=== PATIENT | male | born 1970 | race Caucasian/White ===

== ENCOUNTER 2024-12-19 23:52 | Inpatient (IN) | payer OTHER, SELFPAY ==
[2024-12-19] VITALS (7 sets, daily range): BP systolic 117–160; BP diastolic 72–93; BMI 28.7
[2024-12-19] MEDS: LOW STRENGTH ASPIRIN 324 MG PO (19:36)
--- NOTE | 2024-12-19 19:42 | ED.GENMED ---
History of Present Illness
General
Chief Complaint: Cardiac Symptoms
Source: patient
Exam Limitations: none
Time Seen by Provider: 12/19/24 19:10
Nursing documentation reviewed up to this point in time: agreed with
History of Present Illness
History of Present Illness:
Patient with history of CAD, multiple cardiac stent placement, with most recent in 2021, currently on aspirin and Plavix, presents to ED secondary to recurrent chest pain with shortness of breath over the past 4 days, which has become more
persistent today. Chest pain described as pressure, left-sided, along with sensation of throat discomfort, without any alleviating or exacerbating factors. Chest pain currently described as 1 out of 10 on pain scale. Denies recent travel or
surgery. Denies leg pain or swelling. Patient denies drinking alcohol, but does smoke daily.
Past History
Past History
ED Past Medical History: CAD, HTN and Hypercholesterolemia
ED Past Surgical History: Cardiac (cath 10/17, 12/17)
Social History
Tobacco: Smoker
Alcohol: Occasional
Personal:
Living: with family
Employment: Employed
Family History
Family History: Negative Early CAD or Sudden
Review of Systems
Review of Systems
Allergies reviewed?: Yes
All Other Systems: ROS reviewed and negative except as documented in HPI and ROS
Constitutional: Reports no symptoms
EENT: Reports no symptoms
Respiratory: Reports trouble breathing
Cardiac: Reports chest pain
ABD/GI: Reports nausea
Musculoskeletal: Reports no symptoms
Skin: Reports no symptoms
Neurological: Reports no symptoms
Phy Exam
Physical Exam
Physical Exam:
Physical Exam
General: no apparent distress, not acutely ill. afebrile
Head: nc/at. eomi
Neck: supple. no meningeal signs.
Heart: s1/s2 regular rate and rhythm.
Lungs: no acute respiratory distress. clear bilaterally. chest wall nontender to palpation
Abdomen: normal bowel sounds. not tender.
Neuro: alert and oriented x 3. no focal neurological deficits
Skin: no rash
Psychiatric: well kept. interactive and cooperative
Extremities: no edema. no calf tenderness.
Scores
Heart Score for Chest Pain Patients
STEMI patient?: No
History: Moderately Suspicious
ECG: Normal
Age: >45 - <65 years
Risk Factors: >/= 3 Risk Factors or History of CAD
Troponin: </= Normal Limit
Heart Score for Chest Pain Patients: 4
Heart Score Risk: 20.3% MACE over next 6 weeks
Course
Orders/Labs/Results
Orders:
Orders
12/19/24 19:01
ECG [Electrocardiogram (*1)] Urgent
Reason for Study: Chest Pain
EKG- Treatment ONCE
12/19/24 19:18
Aspirin Chewable [Low Strength Aspirin] 324 mg PO NOW STA
12/19/24 19:31
Complete Blood Count/With Diff Urgent
Comprehensive Metabolic Panel Urgent
Magnesium Urgent
Troponin I Urgent
12/19/24 19:35
PTT Urgent
12/19/24 19:50
Heparin 4,000 units IV NOW STA
Nursing to Place Non Medication Order As Directed
Physician Order: PTT 6 hours after initial start of Heparin infusion
Above order entered?: Yes
12/19/24 20:00
Heparin 47700 Units/250 ml 25,000 units in 250 ml IV PER PROTOCOL
Weight to be used for heparin protocol in kilograms (kg):: 88
Protocol:: Cardiac Tx/Acute Coronary
PTT Goal Range to be used:: PTT 73 to 111 seconds
Order type:: Initial
INITIAL Infusion Dose (UNITS/KG/hr) & then follow protocol:: 12 units/kg/hr
Infusion Dose in UNITS/hr & then follow protocol (UNITS/hr):: 1,000
INFUSION RATE in mL/hr & then follow protocol (mL/hr):: 10
PTT less than or equal to 64 seconds:: Increase rate by 200 units/hr (+ 2 mL/hr)
PTT 64.1 to 72.9 seconds:: Increase rate by 100 units/hr (+ 1 mL/hr)
PTT 73 to 111 seconds:: Target Range. No change in rate.
PTT 111.1 to 130.9 seconds:: Decrease rate by 100 units/hr (- 1 mL/hr)
PTT 131 to 199.9 seconds:: HOLD for 1 hr. Then decrease rate by 200 units/hr (- 2 mL/hr)
PTT greater than or equal to 200 seconds:: HOLD for 2 hrs & Notify Provider. Then decrease by 200 units/hr (-
2 mL/hr)
Lab follow-up:: Each change, PTT q6h until 2 consecutive are therapeutic. Then PTT
daily.
12/19/24 20:21
Electrocardiogram (*1) Urgent
Reason for Study: Chest Pain
EKG- Treatment ONCE
12/19/24 22:55
Admit/Transfer Patient As Directed
Co-Sign Provider:
Level of Care: Inpatient admission
Assign to:: Telemetry
Physician / Group: Reji
Transfer to: Telemetry
Diagnosis: CP, Possible Unstable Angina
Reason for Telemetry: Chest Pain syndromes
Date to Stop Telemetry: 12/21/24
Time to Stop Telemetry: 11:00
Reason for Hospitalization: CP, Possible Unstable Angina
Expected length of stay greater than two midnights?: Yes
ELOS- Estimated Length of Stay in days: 2
I certify the patient meets the requirements for IP care: Yes
PRN Pain Medication Management As Directed
May give lesser potent ordered pain med per pt: Yes
preference::
Protocol:: Medication orders for pain may be administered in a
manner that supports deferring to patient preference
when the pt is:
- Requesting an ordered lesser potent pain medication.
Least to most potent pain medications are defined
as: acetaminophen < NSAID < tramadol < opioids
(morphine, oxycodone, hydromorphone).
- Requesting a lesser dose of the same medication IF
ORDERED.
- Requesting a less intrusive route of administration
if both routes are prescribed by the provider (PO <
IV).
12/19/24 22:56
Code Status As Directed
Resuscitation Status: Full Code
12/19/24 23:00
Flush (0.9% Sodium Chloride) [Flush (Nss)] See Dose Instructions IV PER PROTOCOL
12/19/24 23:01
CR Chest - 2 Views Stat
Comment:
Reason For Exam: CP/Dyspnea
12/20/24 00:38
Electrocardiogram (*1) Q6H
Reason for Study: Chest Pain
Comment: at admission and Q3H for total of 3, to be done with each troponin
Atorvastatin [Lipitor] 80 mg PO HS
Carvedilol [Coreg] 12.5 mg PO BID
Ezetimibe [Zetia] 10 mg PO HS
Ipratropium/Albuterol Sulfate [Duoneb] 3 ml INH R Q4HPRN PRN
Morphine Sulfate 2 mg IV Q6HPRN PRN
Nicotine [Nicoderm Transdermal] 14 mg TRANSDERM DAILY
12/20/24 00:38
CARDIOLOGY CONSULT Routine
Consulting Provider: Ayaka Norris
Was physician already notified: Yes
Reason for consult: CP, Possible Unstable Angina
Activity As Directed
Activity Level: As Tolerated
INT (Intravenous Needle Therapy) As Directed
Comment: maintain peripheral IV access
Intake/ Output As Directed
Frequency: Per unit guidelines
Vital Signs As Directed
Frequency: q4h
Weight As Directed
Frequency: Daily
12/20/24 01:30
Troponin I Q6H
12/20/24 02:00
PTT Routine
12/20/24 Breakfast
NPO
Allow oral meds: Yes
Allow clear liquids: No
NPO with Ice Chips: Yes
Cardiovascular Evaluation IN AM
Complete Blood Count/With Diff IN AM
Comprehensive Metabolic Panel IN AM
Protime/PTT IN AM
12/20/24 06:38
Electrocardiogram (*1) Q6H
Reason for Study: Chest Pain
Comment: at admission and Q3H for total of 3, to be done with each troponin
12/20/24 07:30
EKG [Electrocardiogram (*1)] IN AM
Reason for Study: Chest Pain
Troponin I Q6H
12/20/24 08:00
Aspirin Low Dose EC [Aspir Low (Enteric Coated)] 81 mg PO DAILY
Clopidogrel Bisulfate [Plavix] 75 mg PO DAILY
Losartan [Cozaar] 25 mg PO DAILY
12/20/24 12:38
Electrocardiogram (*1) Q6H
Reason for Study: Chest Pain
Comment: at admission and Q3H for total of 3, to be done with each troponin
12/21/24 11:00
DC Protocol for Telemetry ONCE
Abnormal Lab Results
12/19/24
19:31
Absolute Lymphs (auto) 3.7 H 10^3/uL
(1.2-3.4)
Absolute Monos (auto) 0.8 H 10^3/uL
(0.1-0.6)
Chloride 110 H mmol/L
(98-107)
12/19/24 19:31
12/19/24 19:31
Vital Signs
Initial and Last Documented VS:
Initial Vital Signs
Temp Pulse Resp BP Pulse Ox
98 F 56 20 160/93 99
12/19/24 19:04 12/19/24 19:04 12/19/24 19:04 12/19/24 19:04 12/19/24 19:04
Last Documented Vital Signs
Temp Pulse Resp BP Pulse Ox
97.5 F 60 18 129/78 99
12/20/24 00:51 12/20/24 00:51 12/20/24 00:51 12/20/24 00:51 12/20/24 00:51
MDM/Problems Addressed
MDM/Problems Addressed:
Patient given aspirin 325 mg and started on heparin protocol.
Initial troponin negative. Repeat EKG without any significant ST changes.
Discussed with on-call cardiology, Dr. Ayaka Norris. Request hospitalist admission tonight on heparin protocol, with consideration for potential cardiac catheterization tomorrow.
*EKG
Interpreted by ED Provider?: Yes
EKG Intrepretation Date: 12/19/24
Heart Rate: 61
Rate: normal
Rhythm: sinus
Mellen: normal axis
Interval: normal interval
*Critical Care Note
Total Time (30-74mins, 75-104mins- exclusive of procedures): Not Applicable
ED Attending Note
-
Portions of this chart may have been created with voice recognition software.� Occasional wrong word or��sound alike� substitutions may have occurred due to the inherent limitations of voice recognition software.
Discharge Plan
Departure
Patient Disposition: Admit
Date of Disposition: 12/19/24
Time of Disposition: 22:07
Admit to: Telemetry
Presentation/result/management discussed w/ accepting MD/DO: Hospitalist
Discharge Problem:
Chest pain
Interventions
Interventions:
*Risk Screen - Suicide Last Done: 12/19/24 19:04
*General Assessment Last Done: 12/19/24 19:04
*Neglect/Abuse Screening Last Done: 12/19/24 19:04
*ED- Fall Risk Assessment Last Done: 12/19/24 20:13
*ED COVID-19 Vaccine History Last Done: 12/19/24 20:13
*Nursing Disposition Last Done: 12/20/24 00:25
ED- Pulmonary Assessment Last Done: 12/19/24 23:00
ED- Cardiac Assessment Last Done: 12/19/24 23:00
Discharge Date and Time
Discharge Date/Time: 12/20/24 00:25
[2024-12-19 19:43] LABS: % Eosinophils 5.4 % (0-6); % Immature Granulocytes 0.2 % (0-0.5); % Lymphocytes 38.1 % (20.5-51.1); % Monocytes 7.9 % (1.7-9.3); % Neutrophils 47.4 % (42.2-75.2); Absolute Basophils 0.1 10^3/uL (0-0.2); Absolute Eosinophils 0.5 10^3/uL (0-0.7); Absolute Lymphocytes 3.7 10^3/uL (1.2-3.4); Absolute Monocytes 0.8 10^3/uL (0.1-0.6); Absolute Neutrophils 4.6 10^3/uL (1.4-6.5); Hematocrit 43.4 % (39.0-52.0); Hemoglobin 15.3 g/dL (13.0-18.0); Mean Corp Hgb Conc. 35.3 g/dL (33.0-37.0); Mean Corpuscular Hgb 28.4 pg (27.0-31.0); Mean Corpuscular Volume 80.7 fL (80.0-94.0); Mean Platelet Volume 9.7 fL (7.4-10.4); Nucleated Red Blood Cells % 0 % (-); Platelet Count 214 10^3/uL (130-400); Red Blood Cell Count 5.38 10^6/uL (4.70-6.10); Red Cell Dist. Width 13.5 % (11.5-14.5); White Blood Cell Count 9.7 10^3/uL (4.8-10.8)
[2024-12-19 19:58] LABS: ALT (SGPT) 25 U/L (0-50); AST (SGOT) 28 U/L (17-59); Albumin 4.2 g/dl (3.5-5.0); Alkaline Phosphatase 92 U/L (38-126); Blood Urea Nitrogen 16 mg/dl (9-20); Calcium 9.3 mg/dl (8.4-10.2); Carbon Dioxide 24 mmol/L (22-30); Chloride 110 mmol/L (98-107); Estimated Creatinine Clearance 107 ml/min; Glucose 94 mg/dl (70-99); Potassium 4.2 mmol/L (3.5-5.1); Sodium 138 mmol/L (135-145); Total Bilirubin 0.6 mg/dl (0.2-1.3); Total Protein 6.9 g/dl (6.3-8.2); eGFR > 60.00
[2024-12-19 20:00] LABS: APTT 30.1 Sec (23.4-35.0)
[2024-12-19] MEDS: HEPARIN 25000 UNITS/250 ML IV (20:02)
[2024-12-19] MEDS: HEPARIN 4000 UNITS IV (20:02)
[2024-12-19 20:09] LABS: Troponin I < 0.012 ng/ml
--- NOTE | 2024-12-19 23:02 | HPS.HSE ---
Family Physician
-
Family Physician: Jordyn Duong
Chief Complaint
-
Dyspnea, Chest 'Discomfort' Worsenign over last 1 week
History of Present Illness
54yo M with PMH CAD s/p MS s/p MICHAEL to LAD 11/05/2021, Hx Coronary Stents x3 on aspirin/plavix, HTN/HLD, Tobacco Abuse presents to ER wtih CP/Dyspnea x 1 week. Pt states he has been feeling dyspnea worse in mornings for the past 1 week. He describes
sensation as similar to when he had an MS 7 years ago, but milder severity. Today dyspnea occured again in AM but progressed throughout the day. He also noted substernal chest 'discomfort' radiating to left chest, with no arm/shoulder involvement.
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 Angela F/C, Palps, Wheezing, Abd Pain, N/V/D/C, Dysuria, Calf or Leg Pain. Continues to smoke 1/2 PPD. Endorses med compliance.
ER course: Pt presents BP 160/93 -> 117/81, other V.S.S. WBC 9.7K, Hgb 15.3 g/dL, BUN/Cr 16/0.8, LFTs wnl, Trop 0.012. SB @ 59bpm, TWI III-AVF, Inferior Q-waves, Anterior Q-waves, QTC 423ms. Relatively unchanged from 11/06/2021. S/P ASA 324mg. S/P
heparin bolus/gtt. Case D/W cardiology with possible plan for cath in AM.
TTE 11/06/21 wt EF 50-53%, Trace-Mild MR, PaSP 25 mMHg. Mildly dilated proximal ascending aorta 3.9 cm.
Medical History
Past Medical History
Past Medical History: Reports Other (CAD s/p MS, HTN/HLD, Tobacco Abuse)
Past Surgical History: Reports Other (Coronary Stents x 3 (last 2021), Left Ankle Sx, Hydrocele repair, Left Inguinal Hernia repair)
Social History
Tobacco: Smoker (1/2 PPD x 25+ yrs)
Alcohol: Occasional (infrequent)
Drug: None
Personal:
Living: With Family
Family History
Family History: Other (Mother with CAD s/p MS, Father with Muscular Dystrophy and 'some type of heart disease')
Allergies / Home Medications
Allergies reflects when Allergies were last updated in [facility].
Home Medications with original date entered in [facility]
Allergy/Medication List:
Allergies
Allergy/AdvReac Type Severity Reaction Status Date / Time
acetaminophen [From Percocet] AdvReac 'goes a Verified 12/19/24 19:08
little
loopy'
oxycodone [From Percocet] AdvReac 'goes a Verified 12/19/24 19:08
little
loopy'
Home Medications
aspirin 81 mg tablet,delayed release (Adult Low Dose Aspirin) 81 mg PO DAILY Blood clot prevention/tx 12/06/18
atorvastatin 80 mg tablet 80 mg PO HS High cholesterol 12/06/18
losartan 25 mg tablet 25 mg PO DAILY Heart disease/condition 11/05/21
carvedilol 12.5 mg tablet 12.5 mg PO BID #180 tabs 11/07/21
ezetimibe 10 mg tablet 10 mg PO HS #90 tabs 11/07/21
clopidogrel 75 mg tablet (Plavix) 75 mg PO DAILY 12/19/24
Review of Systems
-
A 12 point ROS was completed and negative except as noted: Yes
Physical Exam
Vital Signs
Vital Signs
Temp Pulse Resp BP Pulse Ox
98 F 59 23 117/81 97
12/19/24 19:04 12/19/24 22:15 12/19/24 22:15 12/19/24 22:00 12/19/24 22:15
Physical Exam
General: Well Developed, Well Nourished and No Apparent Distress
HEENT: NormoCephalic, Moist mucous membranes and Atraumatic
Respiratory: Clear
Cardiac: S1/S2, Regular Rhythm and Other (No reproducible chest tenderness. ); No Murmur, Rub or Peripheral Edema
GI: Soft, Non Tender, Non Distended and Normal Bowel Sounds; No Organomegaly
Rectal: Deferred by Provider
Genito-urinary: No costovertebral tender; No Burger
Musculoskeletal: No Clubbing, No Cyanosis and No Edema
Skin: Warm and Dry; No Rash
Neuro: Awake, Alert, AO x 3, No Motor Deficits and Nonfocal/grossly intact
Hematologic/Lymphatic: No Lymphadenopathy
Psych: Calm
Laboratory Results
-
12/19/24 19:31
12/19/24 19:31
Laboratory Results
APTT 30.1 Sec (23.4-35.0) 12/19/24 19:35
Total Bilirubin 0.6 mg/dl (0.2-1.3) 12/19/24 19:31
AST 28 U/L (17-59) 12/19/24 19:31
ALT 25 U/L (0-50) 12/19/24 19:31
Alkaline Phosphatase 92 U/L (38-126) 12/19/24 19:31
Troponin I < 0.012 ng/ml 12/19/24 19:31
Data Reviewed
-
Diagnostic Radiology: Image Personally Visualized and interpreted
Medical Tests (Nuc Med, Echo, EKG etc): Image Personally Visualized and interpreted
Lab Data: Labs Reviewed by me
Old Records: Reviewed
Impression/Plan
-
Chest Pain/Dyspnea / R/O Unstable Angina
Hx CAD s/p Stents x 3 / HTN / HLD
- Dyspnea and Mild substernal/L sided discomfort x 1 week; reports symptoms similar to past MS 7 years ago
- SB @ 59bpm, TWI III-AVF, Inferior Q-waves, Anterior Q-waves, QTC 423ms. Relatively unchanged from 11/06/2021.
- HS Trop 0.012. Trend per MELISSA protocol. Repeat EKG for AM
- Last TTE 11/06/21 wtih EF 50-53%, Trace-Mild MR, PaSP 25 mMHg. Mildly dilated proximal ascending aorta 3.9 cm; will repeat
- Last LHC 10/2021 with MICHAEL to LAD
- Check Lipids/A1C
- S/P ASA 324mg and Heparin bolus/gtt in ER, continue gtt
- Continue bASA/plavix/statin, zetia, ARB,
- Case D/W Cardio, Possible plans for cardiac cath in AM
Tobacco Abuse
- Smoking 1/2 PPD. Nicotine patch ordered. Discussion at bedside with held regarding importance of cessation.
Diet: NPO
DVT Ppx: Heparin gtt
Code Status: Full Code
[2024-12-20 00:23] VITALS: BP 119/84
[2024-12-20 00:51] VITALS: BP 129/78
[2024-12-20 00:52] VITALS: BMI 28.3
[2024-12-20] MEDS: LIPITOR 80 MG PO (01:06)
[2024-12-20] MEDS: ZETIA 10 MG PO (01:06)
[2024-12-20] MEDS: COREG PO (01:50)
[2024-12-20 02:21] LABS: APTT 69.9 Sec (23.4-35.0)
[2024-12-20 02:32] LABS: Troponin I < 0.012 ng/ml
--- NOTE | 2024-12-20 02:37 | PTCARENOTE ---
Patient received form ED via stretcher and ambulated to room. Heparin gtt infusing at 1000units/min. He was oriented to room and surroundings. He denies further chest pain. Tele Sinus Osvaldo. TT to BRIGHT, covering house, Ok to hold Coreg.
Next dose 8am. Trending labs. See nursing assessment for physical findings.
--- NOTE | 2024-12-20 03:25 | PTCARENOTE ---
Patient refused 3 am VS
[2024-12-20 06:00] VITALS: BMI 28.3
[2024-12-20 07:00] VITALS: BP 124/83
--- NOTE | 2024-12-20 07:58 | CON.CAR ---
Addendum entered and electronically signed by Hector Lanza DO 12/20/24 12:20:
I saw and examined the patient.
The Presetter Operator's note was reviewed and I agree with the note.
Comment:
Plan:
Trop negative. Echo with preserved EF and no significant valve disease and stable wall motion changes from prior.
Discussed outpt ischemic eval with stress testing
EKG with no changes from prior.
Cont current regimen including DAPT and Coreg, losartan, statin, zetia
Reviewed with ATC and stress test will be scheduled.
He remains chest pain free and can go home today from cardiac standpoint
Will update primary service.
Original Note:
Consultation
Consultation Request
Date/Time Consultation Requested: 12/20/24 at 0038
Date/Time Consultation Performed: 12/20/24 at 0722
Requesting Provider: Dr. Sheehan
Performing Provider: Dr. Lanza
Reason for Consultation: Chest pain, CAD
Medical History
-
History of Present Illness:
Patient came to [facility] ER last night with chest pain and SOB that feels similar to previous NJ and PCI and was admitted with consultation to cardiology. Patient had initial NJ in 09/2017 and was treated at [facility] with MICHAEL to Circ lesion, but had residual
LAD disease. Patient then had elective cath and prox LAD PCI at [facility] 11/2018. Patient then came to [facility] ER 03/21/19 with symptoms that felt similar to previous NJ, but following serially undetectable Troponin and stable ECGs the patient was d/c'd from
the ER to follow up with ATC. Plavix was eventually stopped, but he continued on aspirin and then had recurrent anterior STEMI at [facility] ER 11/05/21. Patient had patent previously placed prox LAD and Circ stents during 11/05/21 cath, but there was new
distal/apical LAD lesion that was stented. An OM-1 lesion looked stable at 60-70% as far back as 2018. Patient says that he has been on long-term DAPT with aspirin and Plavix since then and still smokes, but no recurrent symptoms until this past
May when he had a cold and he had lingering SOB, then sick again a couple of months ago and lingering cough. Patient came to the ER last night because he says that his stable morning SOB lasted all day yesterday and he had chest pain at the end
of his work day and overall symptoms felt similar to previous NJ so he came to the ER.
PMH:
CAD
s/p inferolateral STEMI and MICHAEL to the prox Circumflex at [facility] 09/2017
s/p 3.5 mm EluNIR MICHAEL to prox LAD and negative hemodynamic assessment of OM-1 lesion at [facility] 11/2018
s/p anterior STEMI and 2.5 mm Xience to distal/apical LAD, patent prox LAD and prox Circ stents, stable 60-70% OM-1 lesion on cath 11/05/21
Ongoing smoker, he rolls his own cigarettes
HTN
HLD
Past Medical History
Past Medical History: Other (in HPI)
Past Surgical History: Cardiac (PCI)
Social History
Tobacco: Smoker
Alcohol: None
Drug: None
Personal:
Living: With Family
Family History
Family History: Early CAD (father)
Allergies / Home Medications
Allergy/AdvReac Type Severity Reaction Status Date / Time
acetaminophen [From Percocet] AdvReac 'goes a Verified 12/19/24 19:08
little
loopy'
oxycodone [From Percocet] AdvReac 'goes a Verified 12/19/24 19:08
little
loopy'
�Medication �Instructions �Recorded �Confirmed �Type
aspirin 81 mg tablet,delayed 81 mg PO DAILY Blood clot 12/06/18 12/19/24 History
release (Adult Low Dose Aspirin) prevention/tx
atorvastatin 80 mg tablet 80 mg PO HS High cholesterol 12/06/18 12/19/24 History
losartan 25 mg tablet 25 mg PO DAILY Heart 11/05/21 12/19/24 History
disease/condition
carvedilol 12.5 mg tablet 12.5 mg PO BID #180 tabs 11/07/21 12/19/24 Rx
ezetimibe 10 mg tablet 10 mg PO HS #90 tabs 11/07/21 12/19/24 Rx
clopidogrel 75 mg tablet (Plavix) 75 mg PO DAILY 12/19/24 12/19/24 History
Review of Systems
-
History Source: Patient
All other systems: Negative unless noted
Physical Exam
Vital Signs
Temp Pulse Resp BP Pulse Ox
97.5 F 54 18 129/78 99
12/20/24 00:51 12/20/24 01:50 12/20/24 00:51 12/20/24 00:51 12/20/24 00:51
GEN: NAD. AAOx3
HEENT: EOMI, MMM
LUNGS: RA. CTA B/L, no wheeze
CV: SR on tele. Reg, S1/S2, no murmur
ABD: soft, BS+, NT, ND
EXT: No clubbing, cyanosis, lesions or edema B/L
NEURO: Gross non-focal
SKIN: Warm, dry and pink. No rash
Lab Results
Troponin I Cancelled 12/20/24 06:38
Labs 12/19/2024: Sodium 138, potassium 4.2, BUN 16, creatinine 0.8, AST 20, ALT 25, troponin serially undetectable
Impression / Plan
-
PCP: [facility] primary care, Dr. Woodson
Primary Brake Lining Driller: Dr. Oneil of [facility]
Impression:
Admitted with chest pain 12/19/24
CAD
s/p inferolateral STEMI and MICHAEL to the prox Circumflex at [facility] 09/2017
s/p 3.5 mm EluNIR MICHAEL to prox LAD and negative hemodynamic assessment of OM-1 lesion at [facility] 11/2018
s/p anterior STEMI and 2.5 mm Xience to distal/apical LAD, patent prox LAD and prox Circ stents, stable 60-70% OM-1 lesion on cath 11/05/21
Ongoing smoker, he rolls his own cigarettes
HTN
HLD
Echo 11/06/2021: EF 50 to 53%, trace to mild MR, trivial TR, PAP 25 mmHg, mildly dilated proximal ascending aorta, 3.9 cm
Plan:
-Patient came to [facility] ER last night with chest pain and SOB that feels similar to previous NJ and PCI and was admitted with consultation to cardiology. Patient had initial NJ in 09/2017 and was treated at [facility] with MICHAEL to Circ lesion, but had residual
LAD disease. Patient then had elective cath and prox LAD PCI at [facility] 11/2018. Patient then came to [facility] ER 03/21/19 with symptoms that felt similar to previous NJ, but following serially undetectable Troponin and stable ECGs the patient was d/c'd from
the ER to follow up with ATC. Plavix was eventually stopped, but he continued on aspirin and then had recurrent anterior STEMI at [facility] ER 11/05/21. Patient had patent previously placed prox LAD and Circ stents during 11/05/21 cath, but there was new
distal/apical LAD lesion that was stented. An OM-1 lesion looked stable at 60-70% as far back as 2018. Patient says that he has been on long-term DAPT with aspirin and Plavix since then and still smokes, but no recurrent symptoms until this past
May when he had a cold and he had lingering SOB, then sick again a couple of months ago and lingering cough. Patient came to the ER last night because he says that his stable morning SOB lasted all day yesterday and he had chest pain at the end
of his work day and overall symptoms felt similar to previous NJ so he came to the ER.
-ECG reviewed by me is identical to previous from 2021. No acute ischemic changes.
-Check echo now, ordered by me.
-Troponin serially undetectable.
-Called his primary customer marketing intern to obtain records.
-Patient has had similar symptoms in the past, but symptoms have not always been associated with ACS.
-Outpatient doses of aspirin 81 mg daily and Plavix 75 mg daily have been continued
-Outpatient dose of Coreg 12.5 mg twice daily has been continued
-Outpatient dose of losartan 25 mg daily has been continued
-[facility] labs pending, outpatient dose of atorvastatin 80 mg daily has been continued. Patient describes that he has been recommended PCSK9 inhibitor and he has refused.
[2024-12-20] MEDS: COZAAR 25 MG PO (08:10)
[2024-12-20] MEDS: ASPIR LOW (ENTERIC COATED) 81 MG PO (08:10)
[2024-12-20] MEDS: COREG 12.5 MG PO (08:10)
[2024-12-20] MEDS: PLAVIX 75 MG PO (08:10)
[2024-12-20 08:25] LABS: % Basophils 1.4 % (0-2); % Eosinophils 6.5 % (0-6); % Immature Granulocytes 0.3 % (0-0.5); % Lymphocytes 38.3 % (20.5-51.1); % Monocytes 9.3 % (1.7-9.3); % Neutrophils 44.2 % (42.2-75.2); Absolute Basophils 0.1 10^3/uL (0-0.2); Absolute Eosinophils 0.5 10^3/uL (0-0.7); Absolute Lymphocytes 2.8 10^3/uL (1.2-3.4); Absolute Monocytes 0.7 10^3/uL (0.1-0.6); Absolute Neutrophils 3.2 10^3/uL (1.4-6.5); Hematocrit 44.2 % (39.0-52.0); Hemoglobin 15.2 g/dL (13.0-18.0); Mean Corp Hgb Conc. 34.4 g/dL (33.0-37.0); Mean Corpuscular Volume 81.4 fL (80.0-94.0); Mean Platelet Volume 9.9 fL (7.4-10.4); Nucleated Red Blood Cells % 0 % (-); Platelet Count 197 10^3/uL (130-400); Red Blood Cell Count 5.43 10^6/uL (4.70-6.10); Red Cell Dist. Width 13.8 % (11.5-14.5); White Blood Cell Count 7.3 10^3/uL (4.8-10.8)
[2024-12-20 08:48] LABS: Troponin I < 0.012 ng/ml
[2024-12-20 09:12] LABS: INR 1.08; PT 14.5 Sec (11.4-14.6)
[2024-12-20 09:14] LABS: APTT 62.3 Sec (23.4-35.0)
[2024-12-20 09:17] LABS: Glycohemoglobin (HgbA1c) 5.7 % (4.0-5.6)
[2024-12-20 10:24] LABS: ALT (SGPT) 25 U/L (0-50); AST (SGOT) 27 U/L (17-59); Alkaline Phosphatase 86 U/L (38-126); Blood Urea Nitrogen 15 mg/dl (9-20); Calcium 9.5 mg/dl (8.4-10.2); Carbon Dioxide 24 mmol/L (22-30); Chloride 111 mmol/L (98-107); Estimated Creatinine Clearance 107 ml/min; Glucose 98 mg/dl (70-99); HDL Cholesterol 45 mg/dl; LDL Cholesterol, Calculated 75 mg/dl; Potassium 4.4 mmol/L (3.5-5.1); Sodium 138 mmol/L (135-145); Total Bilirubin 0.7 mg/dl (0.2-1.3); Total Cholesterol 134 mg/dl (50-199); Total Protein 6.7 g/dl (6.3-8.2); Triglyceride 74 mg/dl (10-149); Very Low Density Lipoprotein 14 mg/dl (0-30); eGFR > 60.00
[2024-12-20 11:19] VITALS: BP 108/75
--- NOTE | 2024-12-20 12:35 | W.PN.HOSP.TC ---
Today's Communication/Plan
-
Monitor vitals
See plan
Discussed with cardiology, echo with preserved EF and no significant valvular disease and stable wall motion changes from prior. Patient to get outpatient ischemic evaluation with stress testing.
Discharge today
Time of discharge 36 minutes
Assessment / Plan
Assessment / Plan
General: Well Developed, Well Nourished and No Apparent Distress
HEENT: NormoCephalic, Moist mucous membranes
Respiratory: Clear
Cardiac: S1/S2, Regular Rhythm
GI: Soft, Non Tender, Non Distended and Normal Bowel Sounds
Musculoskeletal:No Edema
Neuro: Awake, Alert, AO x 3, No Motor Deficits and Nonfocal/grossly intact
Psych: Calm
Chest Pain/Dyspnea likelye 2/2 Angina
Hx CAD s/p Stents x 3 / HTN / HLD
- Dyspnea and Mild substernal/L sided discomfort x 1 week; reports symptoms similar to past RI 7 years ago
- SB @ 59bpm, TWI III-AVF, Inferior Q-waves, Anterior Q-waves, QTC 423ms. Relatively unchanged from 11/06/2021.
- HS Trop 0.012. Trend per [facility] protocol. Repeat EKG for AM
- Last TTE 11/06/21 wtih EF 50-53%, Trace-Mild MR, PaSP 25 mMHg. Mildly dilated proximal ascending aorta 3.9 cm; will repeat
- Last C 10/2021 with MICHAEL to LAD
Echo 12/20 with preserved EF, per cardiology stable wall motion changes from prior. No significant valvular disease. Our cardiology spoke with patient's outpatient wringer operator and plan is for outpatient stress test or cath. Continue with dual
antiplatelet therapy, Coreg, losartan
remains chest pain free
Tobacco Abuse
- Smoking 1/2 PPD. Nicotine patch ordered. Discussion at bedside with held regarding importance of cessation.
DVT Ppx: Heparin
Code Status: Full Code
Anticipated Discharge: Today
Subjective/Interval History
-
Date of Service: December 20, 2024
denies pain
Objective Data
-
Labs:
Laboratory Results
12/20/24 12/20/24 12/20/24
01:57 08:11 09:00
WBC 7.3
Hgb 15.2
Hct 44.2
Plt Count 197
PT 14.5
INR 1.08
APTT 69.9 H 62.3 H Cancelled
Sodium 138
Potassium 4.4
Chloride 111 H
Carbon Dioxide 24
BUN 15
Creatinine 0.8
Glucose 98
Calcium 9.5
Total Bilirubin 0.7
AST 27
ALT 25
Alkaline Phosphatase 86
12/20/24
15:45
WBC
Hgb
Hct
Plt Count
PT
INR
APTT Pending
Sodium
Potassium
Chloride
Carbon Dioxide
BUN
Creatinine
Glucose
Calcium
Total Bilirubin
AST
ALT
Alkaline Phosphatase
Vital Signs:
Vital Signs
Temp Pulse Resp BP Pulse Ox
97.6 F 65 20 108/75 99
12/20/24 11:19 12/20/24 11:19 12/20/24 11:19 12/20/24 11:19 12/20/24 11:19
--- NOTE | 2024-12-20 12:41 | W.PN.UPDATE ---
Update Note
Progress Note Update
Called the [facility] bat phone and talked with Julissa, she will call patient to schedule exercise nuclear stress test.
--- NOTE | 2024-12-20 12:44 | W.DCSUMMARY ---
Discharge Summary
Discharge Data
Date of Admission: 12/19/24
Date of Discharge: 12/20/24
-
Pending Results: No
Hospital Course
54-year-old male with history of CAD status post stents, tobacco abuse came to the hospital with chest pain and dyspnea which was likely thought was secondary to angina. Patient was seen by cardiology who performed an echocardiogram which showed
preserved EF and per cardiology stable wall motion changes from prior. Our cardiology spoke with patient's outpatient computer systems designer who recommended patient to follow-up outpatient for possible stress test versus cardiac catheterization. Patient
remained chest free throughout hospitalization and upon discharge. Troponins were also checked and were negative. Since patient symptoms improved, he was then discharged home with instructions to follow-up closely with PCP and cardiology
outpatient.
Discharge Plan
-
Patient Disposition: Home (Routine Discharge)
Discharge Diagnosis/Procedures: Angina
hx of CAD
Prediabetes
Diet: As tolerated
Driving Restrictions: As prior to admission
Bathing Restrictions: None
Activity Restrictions/Additional Instructions:
Please see your computer systems designer soon as possible
Referrals:
Jordyn Duong DO [Family Provider] - in less than 1 week
Quan Oneil MD [Active] - in one week (Dr. Oneil's office will call you to schedule a stress test.)
Prescriptions:
New
nicotine 14 mg/24 hr Patch 24 Hour
14 mg transdermal DAILY Qty: 30 0RF
Continued
atorvastatin 80 MG tablet
80 mg PO HS
aspirin [Adult Low Dose Aspirin] 81 MG tablet,delayed release (/EC)
81 mg PO DAILY
losartan 25 MG tablet
25 mg PO DAILY
carvedilol 12.5 MG tablet
12.5 mg PO BID Qty: 180 3RF
ezetimibe 10 MG tablet
10 mg PO HS Qty: 90 3RF
clopidogrel [Plavix] 75 mg Tablet
75 mg PO DAILY
Discharge Orders:
Discharge Patient (As Directed); Ordered 12/20/24
Ordered By: Clive Sheehan
Discharge Date and Time
Discharge Date/Time: 12/20/24 15:26
Print Language: SWEDISH
--- NOTE | 2024-12-20 13:38 | CM ---
Patient for d/c today. Initial assessment completed. Patient is a 54yo M with PMH CAD s/p TX s/p MICHAEL to LAD 11/05/2021, Hx Coronary Stents x3 on aspirin/plavix, HTN/HLD, Tobacco Abuse presents to ER wtih CP/Dyspnea.
Patient resides w/ spouse, daughter, son and grandson in a single story rancher style home- 2 steps to enter. Independent in all areas, no DME reported. OP therapy last year, [place] [place] in the past following a heart attack. No HC hx reported.
Address, points of contact and insurance verified
PCP: Jordyn Duong
Pharmacy: [facility]
Spouse will transport home
No CM needs at this time
Plan: Home, no needs
[2024-12-20 15:06] VITALS: BP 126/73
== END 2024-12-20 15:26 | disposition home or self-care (01) | DRG 303 ==
LOC: 4 WEST ACU 23:52
PROVIDERS: Internal Medicine; ADMITTING PHYSICIAN Hospitalist; ATTENDING PHYSICIAN Internal Medicine; EMERGENCY PHYSICIAN Emergency Medicine; FAMILY PHYSICIAN Family Medicine; OTHER PHYSICIAN Nuclear Medicine Nuclear Cardiology
DX: I25.10 Atherosclerotic heart disease of native coronary artery without angina pectoris (principal); Z95.5 Presence of coronary angioplasty implant and graft; F17.210 Nicotine dependence, cigarettes, uncomplicated; I25.2 Old myocardial infarction; E78.00 Pure hypercholesterolemia, unspecified; I10 Essential (primary) hypertension; Z82.49 Family history of ischemic heart disease and other diseases of the circulatory system; Z79.82 Long term (current) use of aspirin; Z79.899 Other long term (current) drug therapy; Z79.02 Long term (current) use of antithrombotics/antiplatelets; R73.03 Prediabetes
CPT/HCPCS: 71046; 80053; 80061; 83036; 83735; 84484; 85025; 85610; 85730; 93005; 93306; 96374; 96376; 99285